=== PATIENT | male | born 1995 ===

== ENCOUNTER 2017-12-21 00:28 | Inpatient (IN) | payer SELFPAY ==
[2017-12-21] MEDS ORDERED: Sodium Chloride 0.9% 1,000 ML IV STA (01:32)
[2017-12-21 02:35] LABS: BASO # 0.1 K/uL (0.0-0.2); BASO % 0.6 % (0.0-2.0); EOS % 0.2 % (0.0-4.0); HEMOGLOBIN 13.8 g/dL (12.0-18.0); LYMPH # 2.6 K/uL (1.0-4.3); LYMPH % 12.8 % (20.0-40.0); MEAN CELL VOLUME 80.5 fl (80.0-94.0); MEAN CORPUSCULAR HEMOGLOBIN 26.7 pg (27.0-31.0); MEAN CORPUSCULAR HGB CONC 33.2 g/dL (33.0-37.0); MEAN PLATELET VOLUME 8.9 fl (7.2-11.7); MONO # 2.1 K/uL (0.0-0.8); MONO % 10.5 % (0.0-10.0); NEUT # 15.3 K/uL (1.8-7.0); NEUT % 75.9 % (50.0-75.0); RBC 5.16 Mil/uL (4.40-5.90); RED CELL DISTRIBUTION WIDTH 13.1 % (11.5-14.5); WHITE BLOOD COUNT 20.1 K/uL (4.8-10.8)
--- NOTE | 2017-12-21 02:48 | ED PDOC ---
HPI: Male Pain Time Seen by Provider: 12/21/17 01:20 Chief Complaint (Nursing): Male Genitourinary Chief Complaint (Provider): Male Genitourinary History Per: Patient History/Exam Limitations: no limitations Onset/Duration Of Symptoms: Days (x3) Current Symptoms Are (Timing): Still Present Additional Complaint(s): 22 year old male with a history of testicular varicoceles presents to the ED complaining of right testicular pain, onset 3 days ago. He reports right testicle pain with associated fever and redness to scrotum. Denies injury, penile discharge, abdominal pain, vomiting and diarrhea. PMD: none provided Past Medical History Reviewed: Historical Data, Nursing Documentation, Vital Signs Vital Signs: Last Vital Signs Temp 98.7 F 12/21/17 00:54 Pulse 118 H 12/21/17 00:54 Resp 16 12/21/17 00:54 BP 125/79 12/21/17 00:54 Pulse Ox 97 12/21/17 00:54 - Medical History Other PMH: testicular varicoceles - Surgical History Surgical History: No Surg Hx - Family History Family History: States: Unknown Family Hx - Home Medications Home Medications: Ambulatory Orders Medication Instructions Recorded No Known Home Med 12/21/17 - Allergies Allergies/Adverse Reactions: Allergies Allergy/AdvReac Type Severity Reaction Status Date / Time iodine Allergy RASH Verified 12/21/17 00:58 Review of Systems ROS Statement: Except As Marked, All Systems Reviewed And Found Negative Genitourinary Male: Positive for: Other (right testicle pain, swelling and redness) Physical Exam - Reviewed Nursing Documentation Reviewed: Yes Vital Signs Reviewed: Yes - Physical Exam Appears: Positive for: Non-toxic, No Acute Distress Head Exam: Positive for: ATRAUMATIC, NORMOCEPHALIC Skin: Positive for: Normal Color, Warm, Dry Eye Exam: Positive for: EOMI, Normal appearance, PERRL Neck: Positive for: Normal, Painless ROM, Supple Cardiovascular/Chest: Positive for: Regular Rate, Rhythm. Negative for: Murmur Respiratory: Positive for: Normal Breath Sounds. Negative for: Respiratory Distress Gastrointestinal/Abdominal: Positive for: Normal Exam, Soft. Negative for: Tenderness Male Genital Exam: Positive for: erythema (warmth and swelling of right scrotum with induration), scrotum tenderness (R), other (cremasteric reflexes bilaterally) Back: Negative for: L CVA Tenderness, R CVA Tenderness - Laboratory Results Result Diagrams: 12/21/17 02:32 18 02:32 - ECG O2 Sat by Pulse Oximetry: 97 (RA) Pulse Ox Interpretation: Normal Medical Decision Making Medical Decision Makin:34 Impression: right testicle swelling in setting of known varicoceles Initial Plan: --CMP --Lactic Acid plasma --Urine dip --CBC --Chlamydia --Toradol 30 mg IV --Blood cx --Urine cx --Urinalysis --Testes duplex Testes Duplex FINDINGS: Right testicle: Unremarkable. No mass. No torsion. Left testicle: Unremarkable. No mass. No torsion. Epididymides: There is heterogeneous enlargement of right epididymis body and tail measuring 4.5 x 2.5 x 0.8 cm with increased vascularity representing right epididymitis. Normal left epididymis. Scrotum: Small right hydrocele. IMPRESSION: 1. Small right hydrocele. 2. There is heterogeneous enlargement of right epididymis body and tail measuring 4.5 x 2.5 x 0.8 cm with increased vascularity representing right epididymitis. Labs reviewed and are significant for elevated WBC. Given the findings of scrotal cellulitis in setting of acute epididymitis patient will be admitted. Discussed case with Dr. Quezada Scribe Attestation: Documented by Madeleine Dotson, acting as a scribe for See Ware MD. Provider Scribe Attestation: All medical record entries made by the Scribe were at my direction and personally dictated by me. I have reviewed the chart and agree that the record accurately reflects my personal performance of the history, physical exam, medical decision making, and the department course for this patient. I have also personally directed, reviewed, and agree with the discharge instructions and disposition. Disposition - Clinical Impression Clinical Impression: Epididymitis, Cellulitis of scrotum, Varicocele - Patient ED Disposition Is Patient to be Admitted: Yes - Disposition Disposition Time: 03:45 Condition: STABLE - Pt Status Changed To: Hospital Disposition Of: Inpatient - Admit Certification Admit to Inpatient:: After my assessment, the patient will require hospitalization for at least two midnights. This is because of the severity of symptoms shown, intensity of services needed, and/or the medical risk in this patient being treated as an outpatient. - POA Present On Arrival: None
[2017-12-21 02:51] LABS: ALB/GLOB RATIO 1.1 (1.0-2.1); ALBUMIN 4.3 g/dL (3.5-5.0); ALT/SGPT 27 U/L (21-72); AST/SGOT 16 U/L (17-59); BLOOD UREA NITROGEN 12 mg/dl (9-20); CALCIUM 9.5 mg/dL (8.4-10.2); GFR AFRICAN-AMERICAN > 60; GFR NON-AFRICAN AMERICAN > 60
[2017-12-21] MEDS ORDERED: levoFLOXacin 500 mg in D5W 500 MG/100 ML BAG IVPB STA (03:38)
[2017-12-21] MEDS ORDERED: Piperacillin/Tazobact 3.375 GM in Sodium Chloride 0.9% 100 ML IV STA (03:45)
[2017-12-21] MEDS ORDERED: Piperacillin/Tazobact 3.375 gm Inj IVPB ONE (04:07)
[2017-12-21] MEDS ORDERED: levoFLOXacin 500 mg in D5W 500 MG/100 ML BAG IVPB ONE (04:07)
[2017-12-21 04:28] LABS: URINE BILIRUBIN NEGATIVE (NEGATIVE); URINE BLOOD SMALL (NEGATIVE); URINE CLARITY CLOUDY (Clear); URINE COLOR AMBER (YELLOW); URINE GLUCOSE (UA) NEG (Normal); URINE LEUKOCYTE ESTERASE LARGE Leu/uL (Negative); URINE NITRATE NEGATIVE (NEGATIVE); URINE PROTEIN 100 mg/dL (NEGATIVE)
[2017-12-21] MEDS ORDERED: Oxycodone/Acetaminophen 5/325 mg Tab PO PRN (04:28)
--- NOTE | 2017-12-21 04:33 | CP.PCM.HP ---
History of Present Illness - History of Present Illness History of Present Illness: CC: Testicular cellulitis, variocele HPI: This is a 22 y/o male with testicular variocele who presents to the ER c/o R testicular pain. Symptoms started 3 days ago when he was travelling. There is associated fever and redness. No discharge or drainage. No injury or insect bites. No f/c/n/v/d. Nothing improves or worsens symptoms. ROS: 14 systems reviewed, negative other than HPI MHx/SHx: Testicular variocele Allergies: NKDA Medications: None Family Hx: Reviewed, no findings Social Hx: Lives with family, no significant tobacco or EtOH Present on Admission - Present on Admission Any Indicators Present on Admission: No Past Patient History - ANESTHESIA Hx Anesthesia: No Meds Allergies/Adverse Reactions: Allergies Allergy/AdvReac Type Severity Reaction Status Date / Time iodine Allergy RASH Verified 12/21/17 00:58 Physical Exam - Constitutional Appears: No Acute Distress - Head Exam Head Exam: ATRAUMATIC, NORMOCEPHALIC - Eye Exam Eye Exam: EOMI, PERRL - ENT Exam ENT Exam: Mucous Membranes Moist - Neck Exam Neck exam: Positive for: Full Rom - Respiratory Exam Respiratory Exam: Clear to Auscultation Bilateral, NORMAL BREATHING PATTERN - Cardiovascular Exam Cardiovascular Exam: REGULAR RHYTHM, +S1, +S2 - GI/Abdominal Exam GI & Abdominal Exam: Normal Bowel Sounds - Exam Additional comments: R testicle with redness, swelling, tenderness - Neurological Exam Neurological exam: Alert, Oriented x3 - Psychiatric Exam Psychiatric exam: Normal Affect, Normal Mood - Skin Skin Exam: Dry, Warm Results - Vital Signs Recent Vital Signs: Last Vital Signs Temp 98.7 F 12/21/17 00:54 Pulse 118 H 12/21/17 00:54 Resp 16 12/21/17 00:54 BP 125/79 12/21/17 00:54 Pulse Ox 97 12/21/17 04:05 - Labs Result Diagrams: 12/21/17 02:32 12/21/17 02:32 Labs: Laboratory Results - last 24 hr 12/21/17 12/21/17 12/21/17 02:32 02:32 02:32 WBC 20.1 H D RBC 5.16 Hgb 13.8 Hct 41.5 MCV 80.5 D MCH 26.7 L MCHC 33.2 RDW 13.1 Plt Count 215 MPV 8.9 Neut % (Auto) 75.9 H Lymph % (Auto) 12.8 L [place] % (Auto) 10.5 H Eos % (Auto) 0.2 Baso % (Auto) 0.6 Neut # (Auto) 15.3 H Lymph # (Auto) 2.6 [place] # (Auto) 2.1 H Eos # (Auto) 0.0 Baso # (Auto) 0.1 Sodium 137 Potassium 4.2 Chloride 98 Carbon Dioxide 25 Anion Gap 18 BUN 12 Creatinine 1.0 Est GFR ( Amer) > 60 Est GFR (Non-Af Amer) > 60 Random Glucose 95 Lactic Acid 0.9 Calcium 9.5 Total Bilirubin 1.0 AST 16 L ALT 27 Alkaline Phosphatase 53 Total Protein 8.0 Albumin 4.3 Globulin 3.7 Albumin/Globulin Ratio 1.1 Urine Color Urine Clarity Urine pH Ur Specific [place] Urine Protein Urine Glucose (UA) Urine Ketones Urine Blood Urine Nitrate Urine Bilirubin Urine Urobilinogen Ur Leukocyte Esterase Urine RBC (Auto) Urine Microscopic WBC 12/21/17 04:19 WBC RBC Hgb Hct MCV MCH MCHC RDW Plt Count MPV Neut % (Auto) Lymph % (Auto) [place] % (Auto) Eos % (Auto) Baso % (Auto) Neut # (Auto) Lymph # (Auto) [place] # (Auto) Eos # (Auto) Baso # (Auto) Sodium Potassium Chloride Carbon Dioxide Anion Gap BUN Creatinine Est GFR ( Amer) Est GFR (Non-Af Amer) Random Glucose Lactic Acid Calcium Total Bilirubin AST ALT Alkaline Phosphatase Total Protein Albumin Globulin Albumin/Globulin Ratio Urine Color Lulu Urine Clarity Cloudy Urine pH 6.0 Ur Specific [place] 1.031 H Urine Protein 100 Urine Glucose (UA) Neg Urine Ketones Negative Urine Blood Small Urine Nitrate Negative Urine Bilirubin Negative Urine Urobilinogen 2.0 Ur Leukocyte Esterase Large Urine RBC (Auto) 25 H Urine Microscopic WBC 452 H Assessment & Plan (1) Cellulitis of groin, right Assessment and Plan: 22 y/o male with groin cellulitis in setting of variocele. -f/u cultures -Will cover with Unasyn 3g q6h IV, if no improvement, add Vancomycin IV -Pain control per scale -SCDs for DVT PPx Status: Acute (2) Testicular pain, right Status: Acute (3) DVT prophylaxis Status: Acute
--- NOTE | 2017-12-21 08:41 | US ---
HISTORY: right testicular swelling TECHNIQUE: Realtime sonography through the scrotum with color and doppler flow. COMPARISON: Testicular ultrasound dated 05/31/2015. FINDINGS: RIGHT TESTICLE: Measures 4.2 x 3.9 x 2.9 cm. Normal echotexture and flow. RIGHT EPIDIDYMIS: Epididymis measures 4.4 x 2.4 x 0.8 cm. Heterogeneous echotexture with increased Doppler flow. LEFT TESTICLE: Measures 4.3 x 2.2 x 4.3 cm. Normal echotexture and flow. LEFT EPIDIDYMIS: Epididymis measures 1.2 x 3.3 x 1.0 cm. Normal echotexture and flow. HYDROCELE: Small right hydrocele. VARICOCELE: Not evaluated. OTHER FINDINGS: None. IMPRESSION: Acute right epididymitis with small reactive hydrocele.
[2017-12-22 06:38] LABS: BASO # 0.1 K/uL (0.0-0.2); BASO % 0.7 % (0.0-2.0); EOS # 0.2 K/uL (0.0-0.7); EOS % 1.6 % (0.0-4.0); HEMOGLOBIN 13.1 g/dL (12.0-18.0); LYMPH # 2.8 K/uL (1.0-4.3); LYMPH % 25.2 % (20.0-40.0); MEAN CELL VOLUME 81.5 fl (80.0-94.0); MEAN CORPUSCULAR HEMOGLOBIN 26.6 pg (27.0-31.0); MEAN CORPUSCULAR HGB CONC 32.6 g/dL (33.0-37.0); MEAN PLATELET VOLUME 8.9 fl (7.2-11.7); MONO # 1.4 K/uL (0.0-0.8); MONO % 12.6 % (0.0-10.0); NEUT # 6.7 K/uL (1.8-7.0); NEUT % 59.9 % (50.0-75.0); NRBC % 0.1 % (0.0-0.0); RBC 4.91 Mil/uL (4.40-5.90); RED CELL DISTRIBUTION WIDTH 13.4 % (11.5-14.5); WHITE BLOOD COUNT 11.1 K/uL (4.8-10.8)
[2017-12-22 06:49] LABS: BLOOD UREA NITROGEN 14 mg/dl (9-20); CALCIUM 8.7 mg/dL (8.4-10.2); GFR AFRICAN-AMERICAN > 60; GFR NON-AFRICAN AMERICAN > 60
[2017-12-22] MEDS ORDERED: cefTRIAXone (Rocephin) 250 mg Inj IM ONE (07:18)
[2017-12-22 08:28] VITALS: BP 105/67; PULSE 63; RESP 20; TEMP 98.1; O2SAT 98
--- NOTE | 2017-12-22 14:46 | CP.PCM.DIS ---
Provider - Provider Date of Admission: 12/21/17 03:45 Attending physician: Yousif Quezada MD Primary care physician: None. Time Spent in preparation of Discharge (in minutes): 30 Diagnosis - Discharge Diagnosis (1) Epididymitis Status: Acute Comment: -Pt given 5 doses of IV Unasym. -IM Ceftriaxone 250mg administered today. -Remarkable improvement noticed today, pt discharged on Doxycycline PO x 14 days. -Pt instructed to follow up with Urologist, need to evaluate varicocele and recurrent epididymitis. Hospital Course - Lab Results Lab Results: Micro Results 12/21/17 07:46 Urine Urine Culture - Final No Growth (<1,000 CFU/ML) 12/21/17 03:10 Blood Blood Culture - Preliminary NO GROWTH AFTER 24 HOURS 12/21/17 02:26 Blood Blood Culture - Preliminary NO GROWTH AFTER 24 HOURS Most Recent Lab Values WBC 11.1 K/uL (4.8-10.8) H 12/22/17 05:45 RBC 4.91 Mil/uL (4.40-5.90) 12/22/17 05:45 Hgb 13.1 g/dL (12.0-18.0) 12/22/17 05:45 Hct 40.0 % (35.0-51.0) 12/22/17 05:45 MCV 81.5 fl (80.0-94.0) 12/22/17 05:45 MCH 26.6 pg (27.0-31.0) L 12/22/17 05:45 MCHC 32.6 g/dL (33.0-37.0) L 12/22/17 05:45 RDW 13.4 % (11.5-14.5) 12/22/17 05:45 Plt Count 239 K/uL (130-400) 12/22/17 05:45 MPV 8.9 fl (7.2-11.7) 12/22/17 05:45 Neut % (Auto) 59.9 % (50.0-75.0) 12/22/17 05:45 Lymph % (Auto) 25.2 % (20.0-40.0) 12/22/17 05:45 [place] % (Auto) 12.6 % (0.0-10.0) H 12/22/17 05:45 Eos % (Auto) 1.6 % (0.0-4.0) 12/22/17 05:45 Baso % (Auto) 0.7 % (0.0-2.0) 12/22/17 05:45 Neut # (Auto) 6.7 K/uL (1.8-7.0) 12/22/17 05:45 Lymph # (Auto) 2.8 K/uL (1.0-4.3) 12/22/17 05:45 [place] # (Auto) 1.4 K/uL (0.0-0.8) H 12/22/17 05:45 Eos # (Auto) 0.2 K/uL (0.0-0.7) 12/22/17 05:45 Baso # (Auto) 0.1 K/uL (0.0-0.2) 12/22/17 05:45 Sodium 144 mmol/l (132-148) 12/22/17 05:45 Potassium 4.0 MMOL/L (3.6-5.0) 12/22/17 05:45 Chloride 103 mmol/L (98-107) 12/22/17 05:45 Carbon Dioxide 29 mmol/L (22-30) 12/22/17 05:45 Anion Gap 16 (10-20) 12/22/17 05:45 BUN 14 mg/dl (9-20) 12/22/17 05:45 Creatinine 1.1 mg/dl (0.8-1.5) 12/22/17 05:45 Est GFR ( Amer) > 60 12/22/17 05:45 Est GFR (Non-Af Amer) > 60 12/22/17 05:45 Random Glucose 113 mg/dL (75-110) H 12/22/17 05:45 Lactic Acid 0.9 MMOL/L (0.7-2.1) 12/21/17 02:32 Calcium 8.7 mg/dL (8.4-10.2) 12/22/17 05:45 Total Bilirubin 1.0 mg/dl (0.2-1.3) 12/21/17 02:32 AST 16 U/L (17-59) L 12/21/17 02:32 ALT 27 U/L (21-72) 12/21/17 02:32 Alkaline Phosphatase 53 U/L (38-126) 12/21/17 02:32 Total Protein 8.0 G/DL (6.3-8.2) 12/21/17 02:32 Albumin 4.3 g/dL (3.5-5.0) 12/21/17 02:32 Globulin 3.7 gm/dL (2.2-3.9) 12/21/17 02:32 Albumin/Globulin Ratio 1.1 (1.0-2.1) 12/21/17 02:32 Urine Color Lulu (YELLOW) 12/21/17 04:19 Urine Clarity Cloudy (Clear) 12/21/17 04:19 Urine pH 6.0 (5.0-8.0) 12/21/17 04:19 Ur Specific [place] 1.031 (1.003-1.030) H 12/21/17 04:19 Urine Protein 100 mg/dL (NEGATIVE) 12/21/17 04:19 Urine Glucose (UA) Neg mg/dL (Normal) 12/21/17 04:19 Urine Ketones Negative mg/dL (NEGATIVE) 12/21/17 04:19 Urine Blood Small (NEGATIVE) 12/21/17 04:19 Urine Nitrate Negative (NEGATIVE) 12/21/17 04:19 Urine Bilirubin Negative (NEGATIVE) 12/21/17 04:19 Urine Urobilinogen 2.0 mg/dL (0.2-1.0) 12/21/17 04:19 Ur Leukocyte Esterase Large [place]/uL (Negative) 12/21/17 04:19 Urine RBC (Auto) 25 /hpf (0-3) H 12/21/17 04:19 Urine Microscopic WBC 452 /hpf (0-5) H 12/21/17 04:19 - Hospital Course Hospital Course: 22 y/o M with PMHx of previous epididymitis episodes was admitted for management of acute onset of epididymitis. Pt reported he had a few similar episodes in the past that were treated with antibiotics. Pt was administered IV Unasym since yesterday Q6H. US testes showed acute R epididymitis. R testes erythema and edema improved over night after antibiotic administrations, pain was relieved. Pt remained afebrile, tolerating PO, able to ambulate. Today, pt stable and discharged today. Pt instructed to f/u Urologist due to recurrent epididymitis. Safe sex practice discussed with pt. - Date & Time of H&P Date of H&P: 12/21/17 Time of H&P: 04:31 Discharge Exam - Head Exam Head Exam: ATRAUMATIC, NORMOCEPHALIC - Eye Exam Eye Exam: EOMI, Normal appearance - ENT Exam ENT Exam: Mucous Membranes Moist - Neck Exam Neck exam: Full Rom - Respiratory Exam Respiratory Exam: Clear to PA & Lateral, NORMAL BREATHING PATTERN, UNREMARKABLE - Cardiovascular Exam Cardiovascular Exam: REGULAR RHYTHM, +S1, +S2 - GI/Abdominal Exam GI & Abdominal Exam: Normal Bowel Sounds, Soft. absent: Firm, Guarding, Tenderness - Rectal Exam Rectal Exam: absent: Hemorrhoids - Exam Exam: Testicular Tenderness (R scrotal swelling.). absent: Circumcision, Uretheral Discharge - Neurological Exam Neurological exam: Alert, Oriented x3 Discharge Plan - Discharge Medications Prescriptions: Doxycycline Hyclate 100 mg PO BID #28 cap - Follow Up Plan Condition: STABLE Disposition: HOME/ ROUTINE Instructions: Epididymitis (DC), Cellulitis (DC) Additional Instructions: Abstain from sex for 1 week. Safe sex practice advised follow up with urologist in 1 week Referrals: [facility] [place] [Outside] Marcell Barton MD [Medical Doctor] -
== END 2017-12-22 15:30 | disposition home or self-care (01) | DRG 728 ==
LOC: H.ER 00:28 → H.ERHOLD 03:45 → H.MEDSURG1 06:25
PROVIDERS: ADMIT Internal Medicine; ATTEND Internal Medicine
DX: N45.1 Epididymitis (principal); N43.3 Hydrocele, unspecified; Z91.041 Radiographic dye allergy status